=== PATIENT | female | born 1980 | race Caucasian/White ===

== ENCOUNTER 2020-04-09 21:20 | Emergency (ER) | payer MEDICAID ==
[~2020-04-09] VITALS: Ht 170.2 cm; Wt 118.1 kg
[~2020-04-09 21:20] MED LIST: LIDO20SO PO
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
[2020-04-09] MEDS ORDERED: BUPR100T5 PO (22:06)
[2020-04-09] MEDS ORDERED: ESCI20TA25 PO (22:06)
[2020-04-09] MEDS ORDERED: LISI-600 PO (22:06)
[2020-04-09] MEDS ORDERED: acetaminophen 325mg tablet PO ONE (22:15)
--- NOTE | 2020-04-09 22:30 | NUR ---
Patient lying down in bed and given warm blankets d/t c/o being cold. Pt also given Tylenol for c/o a migraine headache. Pt very cooperative during MD visit and blood draw.
[2020-04-09 22:33] LABS: URINE HCG NEGATIVE (NEG)
[2020-04-09 22:35] LABS: BASOPHILS % (AUTO) 0.5 % (0-1); EOSINOPHILS # (AUTO) 0.2 X10'3 (0-0.9); EOSINOPHILS % (AUTO) 3.3 % (0-6); HEMATOCRIT 40.2 % (35.0-45.0); HEMOGLOBIN 13.3 g/dl (12.0-16.0); LYMPHOCYTES # (AUTO) 2.4 X10'3 (1.1-4.8); LYMPHOCYTES % (AUTO) 33.2 % (21-51); MEAN CORPUSCULAR HEMOGLOBIN 30.9 PG (27.0-31.0); MEAN CORPUSCULAR HGB CONC 33.1 g/dL (33.0-36.5); MEAN CORPUSCULAR VOLUME 93.2 FL (78-98); MONOCYTES # (AUTO) 0.7 X10'3 (0-0.9); MONOCYTES % (AUTO) 10.1 % (2-12); NEUTROPHILS # (AUTO) 3.8 X10'3 (1.8-7.7); NEUTROPHILS % (AUTO) 52.9 % (42-75); PLATELET COUNT 223 X10'3 (140-440); RED BLOOD COUNT 4.31 X10'6 (4.20-5.60); RED CELL DISTRIBUTION WIDTH 13.5 % (11.5-14.5); WHITE BLOOD COUNT 7.2 X10'3 (4.5-11.0)
[2020-04-09 22:44] LABS: URINE AMPHETAMINE SCREEN POSITIVE (Neg); URINE BARBITUATE SCREEN NEGATIVE (Neg); URINE BENZODIAZEPINES SCREEN NEGATIVE (Neg); URINE CANNABINOID SCREEN NEGATIVE (Neg); URINE COCAINE SCREEN NEGATIVE (Neg); URINE METHADONE SCREEN NEGATIVE (Neg); URINE OPIATE SCREEN NEGATIVE (Neg); URINE PHENCYCLIDINE SCREEN NEGATIVE (Neg)
[2020-04-09 22:52] LABS: ALANINE AMINOTRANSFERASE 23 U/L (12-78); ALBUMIN 3.8 G/DL (3.4-5.0); ALBUMIN/GLOBULIN RATIO 1.2 (1.1-1.5); ALKALINE PHOSPHATASE 85 IU/L (46-116); ANION GAP 7 (8-16); ASPARTATE AMINO TRANSFERASE 17 U/L (10-37); BILIRUBIN,TOTAL 0.4 MG/DL (0.1-1.0); BLOOD UREA NITROGEN 13 MG/DL (7-18); BUN/CREATININE RATIO 12.1 (6.6-38.0); CALCIUM 9.1 MG/DL (8.5-10.1); CHLORIDE 105 MMOL/L (99-107); CREATININE 1.07 MG/DL (0.40-0.90); GLUCOSE 92 MG/DL (70-104); POTASSIUM 3.3 MMOL/L (3.5-5.1); SODIUM 139 MMOL/L (135-145); TOTAL CARBON DIOXIDE 27.2 MMOL/L (24-32); TOTAL PROTEIN 7.1 G/DL (6.4-8.2); eGFR 57 ML/MIN
[2020-04-09 23:03] LABS: ETHANOL < 0.010 GM/DL (0.0-0.010)
--- NOTE | 2020-04-09 23:10 | NUR ---
packet sent to [facility]
--- NOTE | 2020-04-09 23:19 | NUR ---
Patient is lying on her side and appears to be resting comfortably. No apparent s/s of distress noted
--- NOTE | 2020-04-10 03:38 | NUR ---
patient sleeping undisturbed
[2020-04-10 05:45] VITALS: BP_DIAS 80
--- NOTE | 2020-04-10 06:21 | NUR ---
Patient sleeping supine. No distress observed. Continue to monitor.
[2020-04-10] MEDS ORDERED: lisinopril 20mg tablet PO SCH (08:00)
[2020-04-10] MEDS ORDERED: buPROPion SR 100mg tab PO SCH (08:00)
[2020-04-10] MEDS ORDERED: non-formulary drug (Escitalopram Oxalate (Lexapro) 1 TAB) PO SCH (08:00)
[2020-04-10] MEDS ORDERED: ESCITALOPRAM OXALATE 5 MG TABLET PO SCH ×2 (08:00→21:00)
[2020-04-10 08:14] VITALS: BP_SYST 130
--- NOTE | 2020-04-10 08:15 | NUR ---
RN awoke patient for breakfast and medication. Patient appears very depressed, feeling hopeless and helpless. Patient states she takes Lexapro at night because it helps shut down her brain so she can sleep. Patient did not want to eat breakfast. Continue to monitor.
[2020-04-10] MEDS ORDERED: ESCI5TAB PO (08:19)
[2020-04-10] MEDS ORDERED: acetaminophen 325mg tablet PO ONE (10:10)
== END 2020-04-10 12:00 | disposition home or self-care (01) ==
LOC: ER 21:20
DX: R45.851 Suicidal ideations (principal); F15.90 Other stimulant use, unspecified, uncomplicated; F41.9 Anxiety disorder, unspecified; F32.9 Major depressive disorder, single episode, unspecified; Z87.442 Personal history of urinary calculi; Z87.440 Personal history of urinary (tract) infections; Z90.49 Acquired absence of other specified parts of digestive tract; Z59.0 Homelessness; Z88.0 Allergy status to penicillin; Z88.5 Allergy status to narcotic agent; Z88.6 Allergy status to analgesic agent; Z79.899 Other long term (current) drug therapy
CPT/HCPCS: 36415; 80053; 80305; 80320; 81025; 84443; 85025; 99284